=== PATIENT | male | born 1995 | race Caucasian/White ===

== ENCOUNTER 2023-03-22 01:50 | Inpatient (IN) | payer BC, SELFPAY ==
[2023-03-21 22:46] VITALS: BP 149/106; BMI 31.7
--- NOTE | 2023-03-21 23:25 | ED.GENMED ---
History of Present Illness
General
Chief Complaint: Abdominal Symptoms
Time Seen by Provider: 03/21/23 22:55
Travel History
Have you had any contact with someone who has COVID-19?: No
Do you have any symptoms of coronavirus? Fever > 100 degrees, chills, cough, shortness of breath, sore throat, loss of taste or smell, muscle aches, or headache?: No
History of Present Illness
History of Present Illness:
19-year-old male with no significant past medical history presents to the emergency department for evaluation of intractable diarrhea beginning last night. He was seen in the early hours this morning at [facility] where he tested
positive for norovirus. 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 He also had a CT scan of the abdomen and pelvis which was
unremarkable. He was discharged home however diarrhea continues to worsen throughout the night. rePorts general fatigue as well as mild right-sided lower abdominal pain. Patient did provide reports from [facility] as well as discharge labs
showing a mild JESSA with a serum creatinine of 1.6, sodium of 147, and a serum bicarbonate of 22.
Past History
Past History
ED Past Medical History: None
Social History
Living: with family
Employment: Student
Review of Systems
Review of Systems
Allergies reviewed?: Yes
All Other Systems: ROS reviewed and negative except as documented in HPI and ROS
Phy Exam
Physical Exam
Physical Exam:
GEN: Well appearing, NAD, WDWN
HEENT: Oral mucosa moist, no scleral icterus
Cardiac: Regular rate
Lung: No respiratory distress, no tachypnea
Abdomen: Vague right-sided tenderness, no rigidity
MSK: No gross deformity or injuries
Skin: Good color, no pallor or jaundice, no rashes
Neuro: AO x3, moves all extremities freely
Psych: Calm, cooperative
Course
Orders/Labs/Results
Orders:
Orders
03/21/23 23:15
0.9% Sodium Chloride 1000 ml [Nss] 1,000 ml IV BOLUS
03/21/23 23:33
Complete Blood Count/With Diff Urgent
Comprehensive Metabolic Panel Urgent
Lipase Urgent
03/22/23 00:34
Ketorolac [Toradol] 15 mg IV NOW STA
Ondansetron Injectable [Zofran] 4 mg IV NOW STA
03/22/23 00:50
Venous Blood Gas Urgent
%Oxygen/Room Air: 99
03/22/23 01:00
Dextrose 5%/Water 1000 ml [D5w] 1,000 ml Sodium Bicarbonate 150 meq IV 150 mls/hr
03/22/23 01:07
Admit/Transfer Patient As Directed
Co-Sign Provider:
Level of Care: Inpatient admission
Assign to:: Telemetry
Physician / Group: Juan
Diagnosis: Gastroenteritis, NGMA
Reason for Telemetry: Arrhythmia
Date to Stop Telemetry: 03/25/23
Time to Stop Telemetry: 11:00
Reason for Hospitalization: Gastroenteritis, NGMA
Expected length of stay greater than two midnights?: Yes
ELOS- Estimated Length of Stay in days: 2
I certify the patient meets the requirements for IP care: Yes
03/22/23 01:08
Code Status As Directed
Resuscitation Status: Full Code
03/25/23 11:00
DC Protocol for Telemetry ONCE
Abnormal Lab Results
03/21/23 03/22/23
23:33 00:50
WBC 11.6 H 10^3/uL
(4.8-10.8)
MPV 11.0 H fL
(7.4-10.4)
Absolute Neuts (auto) 9.1 H 10^3/uL
(1.4-6.5)
Absolute Monos (auto) 1.0 H 10^3/uL
(0.1-0.6)
Neutrophils % 78.3 H %
(42.2-75.2)
Lymphocytes % 13.0 L %
(20.5-51.1)
VBG pH 7.14 L*
(7.32-7.43)
VBG HCO3 15.0 L mmol/L
(22-27)
Sodium 147 H mmol/L
(135-145)
Chloride 122 H mmol/L
(98-107)
Carbon Dioxide 13 L* mmol/L
(22-30)
Creatinine 1.6 H mg/dL
(0.7-1.3)
Glucose 123 H mg/dl
(70-99)
Total Protein 8.9 H g/dl
(6.3-8.2)
Albumin 5.3 H g/dl
(3.5-5.0)
Lipase 679 H U/L
(23-300)
03/21/23 23:33
03/21/23 23:33
Vital Signs
Initial and Last Documented VS:
Initial Vital Signs
Pulse Resp BP Pulse Ox
95 16 149/106 99
03/21/23 22:46 03/21/23 22:46 03/21/23 22:46 03/21/23 22:46
Last Documented Vital Signs
Temp Pulse Resp BP Pulse Ox
98.3 F 79 14 130/80 100
03/22/23 02:20 03/22/23 02:20 03/22/23 02:20 03/22/23 02:20 03/22/23 02:20
MDM/Problems Addressed
MDM/Problems Addressed:
Severe metabolic acidosis, likely iatrogenic hyperchloremic acidosis due to excessive crystalloid resuscitation. Given persistence of diarrhea, will admit for further management
*Critical Care Note
Total Time (30-74mins, 75-104mins- exclusive of procedures): 30 minutes
comment:
Critical care time: 30 minutes
Critical care time was exclusive of: Separately billable procedures, treating other patients, and teaching time
Critical care was necessary to treat or prevent imminent or life-threatening deterioration of the following conditions: Metabolic acidosis
Critical care time spent personally by me on the following activities:
[x] Review of old charts
[x] Obtaining history from patient or surrogate
[x] Ordering and review of the laboratory studies
[ ] Ordering and review of radiographic studies
[x] Ordering and performing treatments and interventions
[x] Patient patient's response to treatment
[x] Development of treatment plan with patient or surrogate
ED Attending Note
-
Portions of this chart may have been created with voice recognition software.� Occasional wrong word or��sound alike� substitutions may have occurred due to the inherent limitations of voice recognition software.
Discharge Plan
Departure
Patient Disposition: Admit
Date of Disposition: 03/22/23
Time of Disposition: 00:37
Presentation/result/management discussed w/ accepting MD/DO: Hospitalist
Discharge Problem:
Norovirus
Interventions
Interventions:
*Risk Screen - Suicide Last Done: 03/21/23 22:46
*General Assessment Last Done: 03/21/23 23:32
*Neglect/Abuse Screening Last Done: 03/21/23 22:46
*ED COVID-19 Vaccine History Last Done: 03/21/23 22:46
*Nursing Disposition Last Done: 03/22/23 02:00
OK-Lfwsfd-Lfqhginchv Assessment Last Done: 03/21/23 23:32
Discharge Date and Time
Discharge Date/Time: 03/22/23 02:00
[2023-03-21 23:39] LABS: % Basophils 0.1 % (0-2); % Immature Granulocytes 0.3 % (0-0.5); % Monocytes 8.3 % (1.7-9.3); % Neutrophils 78.3 % (42.2-75.2); Absolute Lymphocytes 1.5 10^3/uL (1.2-3.4); Absolute Neutrophils 9.1 10^3/uL (1.4-6.5); Hematocrit 50.2 % (39.0-52.0); Hemoglobin 17.5 g/dL (13.0-18.0); Mean Corp Hgb Conc. 34.9 g/dL (33.0-37.0); Mean Corpuscular Hgb 29.2 pg (27.0-31.0); Mean Corpuscular Volume 83.7 fL (80.0-94.0); Nucleated Red Blood Cells % 0 % (-); Platelet Count 302 10^3/uL (130-400); Red Cell Dist. Width 12.6 % (11.5-14.5); White Blood Cell Count 11.6 10^3/uL (4.8-10.8)
[2023-03-21] MEDS: NSS 1000 IV (23:57)
[2023-03-22 00:10] LABS: ALT (SGPT) 42 U/L (0-50); AST (SGOT) 28 U/L (17-59); Albumin 5.3 g/dl (3.5-5.0); Alkaline Phosphatase 63 U/L (38-126); Blood Urea Nitrogen 15 mg/dl (9-20); Calcium 9.8 mg/dl (8.4-10.2); Carbon Dioxide 13 mmol/L (22-30); Chloride 122 mmol/L (98-107); Estimated Creatinine Clearance 84 ml/min; Glucose 123 mg/dl (70-99); Lipase 679 U/L (23-300); Potassium 4.4 mmol/L (3.5-5.1); Sodium 147 mmol/L (135-145); Total Bilirubin 0.9 mg/dl (0.2-1.3); Total Protein 8.9 g/dl (6.3-8.2); eGFR 59.82
[2023-03-22] MEDS: TORADOL 15 MG IV (00:51)
[2023-03-22] MEDS: ZOFRAN 4 MG IV (00:51)
[2023-03-22 00:52] VITALS: BP 111/78
[2023-03-22 00:56] LABS: Venous Blood Gas B.E. -13.7 mmol/L (-4 to +4); Venous Blood Gas O2 Sat % 69.7 %; Venous Blood Gas pCO2 44 mmHg (35-48); Venous Blood Gas pO2 42 mmHg (30-50)
[2023-03-22 00:58] LABS: Venous Blood Gas O2 Therapy 99; Venous Blood Gas pH 7.14 (7.32-7.43)
[2023-03-22 01:00] VITALS: BP 116/83
--- NOTE | 2023-03-22 01:12 | HPS.HSE ---
Family Physician
-
Family Physician: Shawn Aguirre
Chief Complaint
-
N/V/D
History of Present Illness
Patient is a 27y M with no significant PMH who presents to ED complaining of N/V/D. Patient states that he initially developed symptoms on Sunday evening. He has had persistent N/V/D since that time with bilious / non-bloody emesis and diarrhea
progressing to now watery bowel movements. Patient was seen at [facility] early today and diagnosed with Norovirus. He was treated with IVFs, Zofran and released. He states that his symptoms seemed improved for a few hours, but then recurred and have
persisted.
He presented to the ED for further evaluation and treatment.
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 No other known / spcific sick contacts.
Medical History
Past Medical History
Past Medical History: Reports Other
Additional Past Medical History:
ADHD
Past Surgical History: Reports Other
Additional Past Surgical History:
Dental ([employer] / Implants)
Social History
Tobacco: Non-smoker
Alcohol: Occasional
Drug: None
Family History
Family History: Other (Mother: CAD)
Allergies / Home Medications
Allergies reflects when Allergies were last updated in [facility].
Home Medications with original date entered in [facility]
Allergy/Medication List:
Allergies
Allergy/AdvReac Type Severity Reaction Status Date / Time
No Known Allergies Allergy Verified 03/21/23 22:49
Home Medications
lisdexamfetamine 30 mg capsule (Vyvanse) 30 mg PO DAILY 03/22/23
Review of Systems
-
History Source: Patient
A 12 point ROS was completed and negative except as noted: Yes
Constitutional: Reports Fatigue; Denies Fever or Chills
EENT: Denies Sore Throat
Respiratory: Denies Cough or Trouble Breathing
Cardiac: Denies Chest Pain or Palpitations
Abdomen/GI: Reports Abdominal Pain, Nausea, Vomiting and Diarrhea; Denies Bloody Stools
: Denies Dysuria or Frequency
Neurological: Denies Dizzy or Headache
Psych: Denies Depression or Anxiety
Physical Exam
Vital Signs
Vital Signs
Temp Pulse Resp BP Pulse Ox
98.7 F 74 16 116/83 100
03/22/23 01:05 03/22/23 01:00 03/22/23 01:00 03/22/23 01:00 03/22/23 01:00
Physical Exam
General: Other (27y M somewhat ill-appearing.)
HEENT: Other (Dry MM.)
Respiratory: Clear; No Wheezes, Rales or Rhonchi
Cardiac: S1/S2 and Regular Rhythm; No Murmur
GI: Soft, Non Tender, Non Distended and Normal Bowel Sounds
Musculoskeletal: No Clubbing, No Cyanosis and No Edema
Neuro: AO x 3
Laboratory Results
-
03/21/23 23:33
03/21/23 23:33
Laboratory Results
Total Bilirubin 0.9 mg/dl (0.2-1.3) 03/21/23 23:33
AST 28 U/L (17-59) 03/21/23 23:33
ALT 42 U/L (0-50) 03/21/23 23:33
Alkaline Phosphatase 63 U/L (38-126) 03/21/23 23:33
Lipase 679 U/L (23-300) H 03/21/23 23:33
Impression/Plan
-
A/P: Patient is a 27y M with no significant PMH who presents to ED complaining of 3 days of profuse, intractable N/V/D.
Norovirus Enteritis
Non-Gapped Metabolic Acidosis
- Admit for further evaluation and treatment.
- BRAT diet as tolerated.
- Pain control, antiemetics, etc.
- Significant acidosis following profuse GI losses and then saline replacement (5-6 liters total today).
- Change to IV bicarb infusion for now.
- Follow serial labs / lytes and adjust IVFs as needed.
- Follow for clinical improvement.
DVT Prophylaxis: SCDs
Code Status: Full
[2023-03-22] MEDS: SODIUM BICARBONATE 1150 MEQ IV ×2 (01:16→08:58)
[2023-03-22 02:12] VITALS: BMI 31.6
[2023-03-22 02:20] VITALS: BP 130/80
[2023-03-22 06:23] LABS: Hematocrit 40.1 % (39.0-52.0); Hemoglobin 14.3 g/dL (13.0-18.0); Mean Corp Hgb Conc. 35.7 g/dL (33.0-37.0); Mean Corpuscular Hgb 29.7 pg (27.0-31.0); Mean Corpuscular Volume 83.2 fL (80.0-94.0); Mean Platelet Volume 10.6 fL (7.4-10.4); Platelet Count 212 10^3/uL (130-400); Red Blood Cell Count 4.82 10^6/uL (4.70-6.10); Red Cell Dist. Width 12.6 % (11.5-14.5); White Blood Cell Count 10.8 10^3/uL (4.8-10.8)
[2023-03-22 06:48] LABS: Blood Urea Nitrogen 15 mg/dl (9-20); Calcium 8.9 mg/dl (8.4-10.2); Carbon Dioxide 18 mmol/L (22-30); Chloride 112 mmol/L (98-107); Estimated Creatinine Clearance 103 ml/min; Glucose 98 mg/dl (70-99); Phosphorus 3.9 mg/dl (2.5-4.5); Potassium 3.4 mmol/L (3.5-5.1); Sodium 142 mmol/L (135-145); eGFR > 60.00
[2023-03-22 07:00] VITALS: BP 129/75
[2023-03-22] MEDS: KCL 40 MEQ PO ×3 (08:15→14:43)
--- NOTE | 2023-03-22 08:32 | W.PN.HOSP.TC ---
Today's Communication/Plan
-
Discharge planning today.
Assessment / Plan
Assessment / Plan
Physical exam:
General: Well Developed, Well Nourished and No Apparent Distress
HEENT: Normocephalic, Atraumatic and Moist Mucous Membranes
Respiratory: Clear to Auscultation; Negative Wheezes, Rales or Rhonchi
Cardiac: Regular Rhythm and S1/S2
GI: Soft, Nontender and Nondistended
Musculoskeletal: No Clubbing, No Cyanosis and No Edema
Neuro: Awake, Alert and Oriented
Psych: Calm
A/P:
Norovirus Enteritis
Non-Gapped Metabolic Acidosis
�- BRAT diet as tolerated.
�- Pain control, antiemetics, etc.
�- Significant acidosis following profuse GI losses and then saline replacement (5-6 liters total today).
�- Change to IV bicarb infusion for now. Bicarbonate 13--> 22 today.
�- Follow serial labs / lytes and adjust IVFs as needed.
�- Follow for clinical improvement. Improved today.
-Patient ready for discharge today as long as eating and drinking.
DVT Prophylaxis:� SCDs
Code Status:� Full
Anticipated Discharge: Today
Subjective/Interval History
-
Date of Service: March 22, 2023
Patient feels better today. Able to eat and drink well. No more diarrhea
Objective Data
-
Labs:
Laboratory Results
03/21/23 03/22/23
23:33 06:09
WBC 11.6 H 10.8
Hgb 17.5 14.3
Hct 50.2 40.1
Plt Count 302 212 D
Sodium 147 H 142
Potassium 4.4 3.4 L
Chloride 122 H 112 H
Carbon Dioxide 13 L* 18 L
BUN 15 15
Creatinine 1.6 H 1.3
Glucose 123 H 98
Calcium 9.8 8.9
Total Bilirubin 0.9
AST 28
ALT 42
Alkaline Phosphatase 63
Vital Signs:
Vital Signs
Temp Pulse Resp BP Pulse Ox
98.3 F 79 14 130/80 100
03/22/23 02:20 03/22/23 02:20 03/22/23 02:20 03/22/23 02:20 03/22/23 02:20
I&O
03/21/23 03/22/23 03/23/23
06:59 06:59 06:59
Intake Total 750 / 750
Balance 750 / 750
Review of Systems
-
All other systems: Reviewed and negative
--- NOTE | 2023-03-22 09:42 | W.DCSUMMARY ---
Discharge Summary
Discharge Data
Date of Admission: 03/22/23
Date of Discharge: 03/22/23
-
Pending Results: No
Hospital Course
Patient 27 years old male no significant past medical hematoma hospital with nausea vomiting and diarrhea. He was found to have norovirus prior to admission. Patient was found to be in severe dehydration with acute kidney injury and a creatinine
of 1.6 and severe metabolic acidosis with a bicarb of 13. He was given significant IV fluid hydration with isotonic and bicarbonate infusion and his bicarb went up to 22 and his renal function improved to normal with a creatinine of 1.2. Patient is
improving substantially from clinical standpoint. He did have some hypokalemia as expected and he has been receiving oral replacement. Otherwise, patient is hemodynamically stable eating and drinking well and he is going to be discharged in stable
condition today.
Discharge Plan
-
Patient Disposition: Home (Routine Discharge)
Discharge Diagnosis/Procedures: Acute gastroenteritis due to norovirus. Acute kidney injury. Metabolic acidosis.
Diet: Regular
Activity: As tolerated
Blood Work: Please PCP to order CBC, BMP within 1 week.
Referrals:
Shawn Aguirre, DO [Family Provider] - in less than 1 week
Prescriptions:
No Action
dextroamphetamine-amphetamine 15 mg capsule,extended release 24hr
15 mg PO DAILY@0930
Discharge Orders:
Discharge Patient (As Directed); Ordered 03/22/23
Ordered By: Warenr Hyman
Discharge Date and Time
Discharge Date/Time: 03/22/23 15:34
[2023-03-22 11:52] VITALS: BP 119/79
[2023-03-22 13:12] LABS: Blood Urea Nitrogen 13 mg/dl (9-20); Calcium 8.5 mg/dl (8.4-10.2); Carbon Dioxide 22 mmol/L (22-30); Chloride 112 mmol/L (98-107); Estimated Creatinine Clearance 112 ml/min; Glucose 72 mg/dl (70-99); Potassium 3.3 mmol/L (3.5-5.1); Sodium 140 mmol/L (135-145); eGFR > 60.00
--- NOTE | 2023-03-22 13:38 | CM ---
met with patient at bedside.he lives alone and is totally independent. he is adm with gastroenteritis and is eating and stable for discharge home with ho needs.
== END 2023-03-22 15:34 | disposition home or self-care (01) | DRG 392 ==
LOC: 3 WEST ACU 01:50
PROVIDERS: Physician Assistant; ADMITTING PHYSICIAN Hospitalist; ATTENDING PHYSICIAN Hospitalist; EMERGENCY PHYSICIAN Emergency Medicine; FAMILY PHYSICIAN Family Medicine
DX: A08.11 Acute gastroenteropathy due to Norwalk agent (principal); N17.9 Acute kidney failure, unspecified; E87.20 Acidosis, unspecified; F90.9 Attention-deficit hyperactivity disorder, unspecified type; E86.0 Dehydration; E87.6 Hypokalemia
CPT/HCPCS: 80048; 80053; 82805; 83690; 83735; 84100; 85025; 85027; 96361; 96365; 96375; 99291